=== PATIENT | female | born 1990 | race Hispanic/Latino ===

== ENCOUNTER 2016-12-03 22:10 | Emergency (ER) | payer OTHER ==
[2016-12-03] MEDS ORDERED: DICYCLOMINE 10 MG CAP As Ordered ONE (23:51)
[2016-12-03 23:55] LABS: BASO # 0.1 K/mm3 (0.0-0.2); BASO % 0.9 % (0.0-1.0); EOS # 0.5 K/mm3 (0.0-0.50); EOS % 7.8 % (0.0-3.0); LARGE UNSTAINED CELL # 0.1 K/mm3 (0.0-0.4); LYMPH # 2.9 K/mm3 (1.5-6.5); MEAN CORPUSCULAR HEMOGLOBIN 24.6 pg (27.0-33.0); MEAN CORPUSCULAR HGB CONC 31.6 g/dl (32.0-36.5); MEAN CORPUSCULAR VOLUME 77.8 fl (80.0-96.0); MONO # 0.4 K/mm3 (0.0-0.8); MONO % 5.7 % (0.0-5.0); NEUTROPHILS # 2.7 K/mm3 (1.8-7.7); NEUTROPHILS % 41.5 % (36.0-66.0); PLATELET COUNT, AUTOMATED 293 k/mm3 (150-450); RED CELL DISTRIBUTION WIDTH 14.1 % (11.5-14.5); WHITE BLOOD COUNT 6.6 K/mm3 (4.0-10.0)
[2016-12-04 00:22] LABS: ANION GAP 6 MEQ/L (8-16); BLOOD UREA NITROGEN 14 MG/DL (7-18); CALCIUM LEVEL 8.7 MG/DL (8.5-10.1); CARBON DIOXIDE LEVEL 29 MEQ/L (21-32); CHLORIDE LEVEL 106 MEQ/L (98-107); CREATININE FOR GFR 0.71 MG/DL (0.55-1.02); GLOMERULAR FILTRATION RATE > 60.0 (>60); GLUCOSE, FASTING 88 MG/DL (70-105); HCG, SERUM QUANTITATIVE < 1.0 MIU/ML; POTASSIUM SERUM 3.8 MEQ/L (3.5-5.1); SODIUM LEVEL 141 MEQ/L (136-145)
--- NOTE | 2016-12-04 00:43 | EDDOCDS ---
Physician Documentation [facility] Name: Ariella Rock Age: 26 yrs Sex: Female : 1990 Arrival Date: 12/03/2016 Time: 22:10 Bed I2 / M2 Private MD: Disposition: 12/04/16 00:36 Discharged to Home/Self Care. Impression: Lower abdominal pain, unspecified - CRAMPING, Constipation, unspecified. - Condition is Stable. - Discharge Instructions: Constipation, Adult, Abdominal Pain, Women. - Prescriptions for Bentyl 20 mg Oral Tablet - take 1 tablet by ORAL route every 6 hours As needed; 20 tablet. Colace 100 mg Oral Capsule - take 1 tablet by ORAL route every 12 hours As needed TAKE NEEDED UNTIL PRODUCTIVE BOWEL MOVEMENT, THEN STOP TAKING; 20 tablet. - Medication Reconciliation, Local Pharmacy Hours form. - Follow up: Emergency Department; When: As needed; Reason: Worsening of conditions. [facility]; When: Call to arrange an appointment; Reason: Recheck today's complaints, Continuance of care, To establish care. - Problem is new. - Symptoms have improved. Historical: - Allergies: Ibuprofen (Rash); - Home Meds: 1. Advair Diskus 250-50 mcg/dose Inhl dsdv 2 times per day (Last dose: 12/02/2016) - PMHx: Asthma; - PSHx: Cholecystectomy; Cesearean Section; - Social history: Smoking status: Patient states was never smoker of tobacco. Patient/guardian denies using alcohol, street drugs, No barriers to communication noted, The patient speaks fluent Setswana, Speaks appropriately for age. - Family history: Not pertinent. - : The pt / caregiver states he / she is not on anticoagulants. Home medication list is obtained from the patient. - Exposure Risk Screening:: None identified. GRAPE PICKER: 12/03 22:16 LMP 10/26/2016 ttb Vital Signs: 22:12 BP 128 / 70 RA Sitting (auto/lg); Pulse 84; Resp 16; Temp 98.4(O); Pulse Ox 99% on R/A; rs6 Weight 86.18 kg / 189.99 lbs (R); Height 5 ft. 2 in. (157.48 cm) (R); Pain 7/10; 12/04 00:37 BP 132 / 86; Pulse 72; Resp 16; Temp 98.8; Pulse Ox 99% on R/A; Pain 5/10; ld5 12/03 22:12 Body Mass Index 34.75 (86.18 kg, 157.48 cm) rs6 MDM: 12/03 22:27 UCG by Nursing ordered. dt4 22:29 Urinalysis Ordered. EDMS 22:29 Urine Culture Ordered. EDMS 23:33 Hcg, Serum Quantitative Ordered. EDMS 23:33 CBC with Diff Ordered. EDMS 23:33 Basic Metabolic Profile Ordered. EDMS 23:43 Dicyclomine 20 mg PO once ordered. dt4 12/04 00:08 Financial registration complete. [facility] 00:33 [facility] Payment Agreement was scanned into [employer] and attached to record. [facility] Point of Care Testing: Urine : 12/03 22:53 hCG Reading: Negative; cz Ranges: Administered Medications: 23:54 Drug: Dicyclomine 20 mg [dicyclomine 10 mg capsule (2 caps)] Route: PO; rw1 Signatures: Dispatcher [employer] EDEdilia De La Rosa,RN RN ld5 Lizzie Hill, MATHEW RN Jyoti Hayes, LÓPEZ PAHenrique dt4 Adeola Maravilla [facility] Bry Wren LPN rw1 The chart was reviewed and I authenticate all verbal orders and agree with the evaluation and treatment provided.Attachments: 12/04 00:33 [facility] Payment Agreement [facility] MTDD
--- NOTE | 2016-12-04 00:43 | EDDOCDS ---
Nurse's Notes [facility] Name: Ariella Rock Age: 26 yrs Sex: Female : 1990 Arrival Date: 12/03/2016 Time: 22:10 Bed I2 / M2 Private MD: Diagnosis: Lower abdominal pain, unspecified-CRAMPING;Constipation, unspecified Presentation: 12/03 22:14 Presenting complaint: Patient states: lower abd cramping that is worse at night x3 ttb days. -preg test at home. Some nausea and dizziness. Denies diarrhea. + constipation. No vag bleeding. Risk factors: the patient reports no vaginal bleeding. Adult Sepsis Screening: The patient does not have new or worsening altered mentation. Patient's respiratory rate is less than 22. Systolic blood pressure is greater than 100. Patient has a qSOFA score of 0- Negative Sepsis Screen. Suicide/Homicide risk assessment- the patient denies having any suicidal and/or homicidal ideations and does not present with any other emotional, behavioral or mental health complaints. Status: The patient is a dependent. Transition of care: patient was not received from another setting of care. 22:14 Acuity: FAVIOLA Level 3 ttb 22:14 Method Of Arrival: Walkin/Carried/Asstd ttb Triage Assessment: 22:16 General: Appears in no apparent distress, well nourished, well groomed, Behavior is ttb appropriate for age, cooperative, pleasant. Pain: Location: lower abd cramping Pain currently is 7 out of 10 on a pain scale. Pain radiates to right and left lower abd. HIV screening NA for this visit Offered previously. Neurological: Level of Consciousness is awake, alert. Cardiovascular: Chest pain is denied. Respiratory: No deficits noted. GI: Reports constipation, nausea. : Denies vaginal bleeding. Derm: Skin is normal. Injury Description: No known injury. 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 Advair Diskus 250-50 mcg/dose Inhl dsdv 2 times per day (Last dose: 12/02/2016) - PMHx: Asthma; - PSHx: Cholecystectomy; Cesearean Section; - Social history: Smoking status: Patient states was never smoker of tobacco. Patient/guardian denies using alcohol, street drugs, No barriers to communication noted, The patient speaks fluent Frisian, Speaks appropriately for age. - Family history: Not pertinent. - : The pt / caregiver states he / she is not on anticoagulants. Home medication list is obtained from the patient. - Exposure Risk Screening:: None identified. Screenin/04 00:37 Screening information is obtained from the patient. Fall risk: No risks identified. ld5 Assistance ADL's: requires no assistance with activities of daily living. Abuse/DV Screen: The patient / caregiver reports he/she is: not in a situation that causes fear, pain or injury. Nutritional screening: No deficits noted. Advance Directives: There is no active DNR order. home support is adequate. Assessment: 00:37 General: Appears in no apparent distress, Behavior is cooperative, pleasant. Pain: ld5 Location: right lower quadrant and left lower quadrant Pain currently is 5 out of 10 on a pain scale. Quality of pain is described as crampy. Neurological: Level of Consciousness is awake, alert. Respiratory: Airway is patent Respiratory effort is even, unlabored. GI: Abdomen is non- distended Bowel sounds present X 4 quads. Abd is tender to palpation in suprapubic area Denies nausea, vomiting. Derm: Skin is intact, Skin is dry. Vital Signs: 12/03 22:12 BP 128 / 70 RA Sitting (auto/lg); Pulse 84; Resp 16; Temp 98.4(O); Pulse Ox 99% on R/A; rs6 Weight 86.18 kg (R); Height 5 ft. 2 in. (157.48 cm) (R); Pain 7/10; 12/04 00:37 BP 132 / 86; Pulse 72; Resp 16; Temp 98.8; Pulse Ox 99% on R/A; Pain 5/10; ld5 12/03 22:12 Body Mass Index 34.75 (86.18 kg, 157.48 cm) [facility] Vitals: 12/03 22:12 Log In Time: December 03, 2016 at 22:12. [facility] ED Course: 22:11 Patient visited by Lakesha Laureano PCA. rs6 22:11 Patient moved to Waiting rs6 22:13 Patient visited by Lakesha Laureano PCA. rs6 22:13 Patient moved to Pre RCE rs6 22:15 Triage Initiated ttb 22:17 Patient visited by Lizzie Hill RN. ttb 22:53 Patient moved to Triage 1 cz 23:13 Jyoti Gamino PA-C is PHCP. dt4 23:13 Vincent Faulkner DO is Attending Physician. dt4 23:13 Patient visited by Jyoti Gamino PA-C. dt4 23:45 Patient moved to I2 / M2 cz 23:45 Basic Metabolic Profile Sent. cz 23:45 CBC with Diff Sent. cz 23:45 Hcg, Serum Quantitative Sent. cz 23:54 Patient visited by Bry Wren LPN. rw1 02/04 00:32 Patient name changed from Ariella\S\\S\Pranav\S\ to Ariella\S\ \S\Pranav. EDMS 00:33 [facility] [place] Agreement was scanned into [employer] and attached to record. [facility] 00:35 [facility] is Referral Physician. dt4 00:37 The patient / caregiver is instructed regarding the plan of care and ED course. Patient ld5 has correct armband on for positive identification. 00:37 No IV's were initiated during this patient's visit. No procedures done that require ld5 assistance. 00:40 Patient visited by Edilia Troy RN. ld5 00:42 Patient visited by Edilia Troy,MATHEW. ld5 Administered Medications: 0203 23:54 Drug: Dicyclomine 20 mg [dicyclomine 10 mg capsule (2 caps)] Route: PO; rw1 Point of Care Testing: Urine : 22:53 hCG Reading: Negative; cz Ranges: Order Results: Lab Order: Urinalysis; SPEC'M 12/03/16 22:42 Test: APPEARANCE, URINE; Value: CLEAR; Range: CLEAR; Status: F Test: COLOR, URINE; Value: YELLOW; Range: YELLOW; Status: F Test: PH,URINE; Value: 6.0; Range: 5.0-9.0; Units: UNITS; Status: F Test: SPECIFIC GRAVITY URINE AUTO; Value: 1.023; Range: 1.002-1.035; Status: F Test: PROTEIN, URINE AUTO; Value: NEGATIVE; Range: NEGATIVE; Units: mg/dL; Status: F Test: GLUCOSE, URINE (UA) AUTO; Value: NEGATIVE; Range: NEGATIVE; Units: mg/dL; Status: F Test: KETONE, URINE AUTO; Value: NEGATIVE; Range: NEGATIVE; Units: mg/dL; Status: F Test: UROBILINOGEN, URINE AUTO; Value: 0.2; Range: 0.0-2.0; Units: mg/dL; Status: F Test: BILIRUBIN, URINE AUTO; Value: NEGATIVE; Range: NEGATIVE; Status: F Test: NITRITE, URINE AUTO; Value: NEGATIVE; Range: NEGATIVE; Status: F Test: LEUKOCYTE ESTERASE, URINE AUTO; Value: NEGATIVE; Range: NEGATIVE; Status: F Test: BLOOD, URINE BLOOD; Value: NEGATIVE; Range: NEGATIVE; Status: F Test: WBC, URINE AUTO; Value: 0; Range: 0-3; Units: /HPF; Status: F Test: RBC, URINE AUTO; Value: 3; Range: 0-3; Units: /HPF; Status: F Test: BACTERIA, URINE AUTO; Value: NEGATIVE; Range: NEGATIVE; Status: F Test: SQUAMOUS EPITHELIAL CELL UR AU; Value: 1; Range: 0-6; Units: /HPF; Status: F Test: HYALINE CAST, URINE AUTO; Value: 0; Range: 0-1; Units: /LPF; Status: F Lab Order: Hcg, Serum Quantitative; SPEC'M 12/03/16 23:41 Test: HCG, SERUM QUANTITATIVE; Value: < 1.0; Units: MIU/ML; Status: F Test Note: ; GESTATIONAL AGE APPROXIMATE HCG RANGE (MIU/ML) 0.2-1 WEEK 5-50 1-2 WEEKS 50-500 2-3 WEEKS 100-5,000 3-4 WEEKS 500-10,000 4-5 WEEKS 1,000-50,000 5-6 WEEKS 10,000-100,000 6-8 WEEKS 15,000-200,000 2-3 MONTHS 10,000-100,000 NON FEMALES LESS THAN 3.0 Patient samples may contain human heterophilic antibodies that could react with immunoassays to give falsely elevated or depressed results. This assay has been designed to minimize interference from heterophilic antibodies. Elevated hCG levels have also been associated with trophoblastic disease and nontrophoblastic neoplasms. The possibility of having these diseases should be considered before a diagnosis of is made. This test is not intended for use as a surrogate marker for aiding in the diagnosis or monitoring the treatment of cancer patients. [employer] blogTV methodology. Lab Order: CBC with Diff; SPEC'M 12/03/16 23:41 Test: WHITE BLOOD COUNT; Value: 6.6; Range: 4.0-10.0; Units: K/mm3; Status: F Test: RED BLOOD COUNT; Value: 4.82; Range: 4.00-5.40; Units: M/mm3; Status: F Test: HEMOGLOBIN; Value: 11.9; Range: 12.0-16.0; Abnormal: Below low normal; Units: g/dl; Status: F Test: HEMATOCRIT; Value: 37.5; Range: 36.0-47.0; Units: %; Status: F Test: MEAN CORPUSCULAR VOLUME; Value: 77.8; Range: 80.0-96.0; Abnormal: Below low normal; Units: fl; Status: F Test: MEAN CORPUSCULAR HEMOGLOBIN; Value: 24.6; Range: 27.0-33.0; Abnormal: Below low normal; Units: pg; Status: F Test: MEAN CORPUSCULAR HGB CONC; Value: 31.6; Range: 32.0-36.5; Abnormal: Below low normal; Units: g/dl; Status: F Test: RED CELL DISTRIBUTION WIDTH; Value: 14.1; Range: 11.5-14.5; Units: %; Status: F Test: PLATELET COUNT, AUTOMATED; Value: 293; Range: 150-450; Units: k/mm3; Status: F Test: NEUTROPHILS %; Value: 41.5; Range: 36.0-66.0; Units: %; Status: F Test: LYMPH %; Value: 42.0; Range: 24.0-44.0; Units: %; Status: F Test: MONO %; Value: 5.7; Range: 0.0-5.0; Abnormal: Above high normal; Units: %; Status: F Test: EOS %; Value: 7.8; Range: 0.0-3.0; Abnormal: Above high normal; Units: %; Status: F Test: BASO %; Value: 0.9; Range: 0.0-1.0; Units: %; Status: F Test: LARGE UNSTAINED CELL %; Value: 2.0; Range: 0.0-4.0; Units: %; Status: F Test: NEUTROPHILS #; Value: 2.7; Range: 1.8-7.7; Units: K/mm3; Status: F Test: LYMPH #; Value: 2.9; Range: 1.5-6.5; Units: K/mm3; Status: F Test: MONO #; Value: 0.4; Range: 0.0-0.8; Units: K/mm3; Status: F Test: EOS #; Value: 0.5; Range: 0.0-0.50; Units: K/mm3; Status: F Test: BASO #; Value: 0.1; Range: 0.0-0.2; Units: K/mm3; Status: F Test: LARGE UNSTAINED CELL #; Value: 0.1; Range: 0.0-0.4; Units: K/mm3; Status: F Lab Order: Basic Metabolic Profile; [facility] 12/03/16 23:41 Test: GLUCOSE, FASTING; Value: 88; Range: 70-105; Units: MG/DL; Status: F Test: BLOOD UREA NITROGEN; Value: 14; Range: 7-18; Units: MG/DL; Status: F Test: CREATININE FOR GFR; Value: 0.71; Range: 0.55-1.02; Units: MG/DL; Status: F Test: GLOMERULAR FILTRATION RATE; Value: > 60.0; Range: >60; Status: F Test: SODIUM LEVEL; Value: 141; Range: 136-145; Units: MEQ/L; Status: F Test: POTASSIUM SERUM; Value: 3.8; Range: 3.5-5.1; Units: MEQ/L; Status: F Test: CHLORIDE LEVEL; Value: 106; Range: 98-107; Units: MEQ/L; Status: F Test: CARBON DIOXIDE LEVEL; Value: 29; Range: 21-32; Units: MEQ/L; Status: F Test: ANION GAP; Value: 6; Range: 8-16; Abnormal: Below low normal; Units: MEQ/L; Status: F Test: CALCIUM LEVEL; Value: 8.7; Range: 8.5-10.1; Units: MG/DL; Status: F Test Note: ; Units are mL/min/1.73 m2 Chronic Kidney Disease Staging per NKF: Stage I & II GFR >=60 Normal to Mildly Decreased Stage III GFR 30-59 Moderately Decreased Stage IV GFR 15-29 Severely Decreased Stage V GFR <15 Very Little GFR Left ESRD GFR <15 on FIELD APPRAISER Outcome: 12/04 00:36 Discharge ordered by Provider. dt4 00:37 Discharge Assessment: Patient awake, alert and oriented x 3. No cognitive and/or ld5 functional deficits noted. Patient verbalized understanding of disposition instructions. patient administered narcotics - no. The following High Risk Discharge criteria are identified: None. Discharged to home ambulatory. Condition: stable. Discharge instructions given to patient, Instructed on discharge instructions, follow up and referral plans. medication usage, Demonstrated understanding of instructions, medications, Pt was receptive of discharge instructions/ teaching. Prescriptions given X 2. No special radiology studies were completed. Property :Personal belongings accompany Pt. 00:42 Patient left the ED. ld5 Signatures: Dispatcher [employer] EDMS Shawn Segovia, RN RN cz Bry Wren LPN FLIGHT TEST SUPERVISOR rw1 Edilia Troy,RN RN ld5 Lizzie Hill, MATHEW RN Jyoti Hayes PA-C PA-C dt4 Adeola Maravilla Rebecca, YANY FACILITY MAINTENANCE WORKER rs6 MTDStephie
--- NOTE | 2016-12-06 01:43 | EDDOCDS ---
Physician Documentation [facility] Name: Ariella Rock Age: 26 yrs Sex: Female : 1990 Arrival Date: 12/03/2016 Time: 22:10 Bed I2 / M2 Private MD: Disposition: 12/04/16 00:36 Discharged to Home/Self Care. Impression: Lower abdominal pain, unspecified - CRAMPING, Constipation, unspecified. - Condition is Stable. - Discharge Instructions: Constipation, Adult, Abdominal Pain, Women. - Prescriptions for Bentyl 20 mg Oral Tablet - take 1 tablet by ORAL route every 6 hours As needed; 20 tablet. Colace 100 mg Oral Capsule - take 1 tablet by ORAL route every 12 hours As needed TAKE NEEDED UNTIL PRODUCTIVE BOWEL MOVEMENT, THEN STOP TAKING; 20 tablet. - Medication Reconciliation, Local Pharmacy Hours form. - Follow up: Emergency Department; When: As needed; Reason: Worsening of conditions. [facility]; When: Call to arrange an appointment; Reason: Recheck today's complaints, Continuance of care, To establish care. - Problem is new. - Symptoms have improved. Historical: - Allergies: Ibuprofen (Rash); - Home Meds: 1. Advair Diskus 250-50 mcg/dose Inhl dsdv 2 times per day (Last dose: 12/02/2016) - PMHx: Asthma; - PSHx: Cholecystectomy; Cesearean Section; - Social history: Smoking status: Patient states was never smoker of tobacco. Patient/guardian denies using alcohol, street drugs, No barriers to communication noted, The patient speaks fluent Thai, Speaks appropriately for age. - Family history: Not pertinent. - : The pt / caregiver states he / she is not on anticoagulants. Home medication list is obtained from the patient. - Exposure Risk Screening:: None identified. FURRIER APPRENTICE: 12/03 22:16 LMP 10/26/2016 ttb Vital Signs: 22:12 BP 128 / 70 RA Sitting (auto/lg); Pulse 84; Resp 16; Temp 98.4(O); Pulse Ox 99% on R/A; rs6 Weight 86.18 kg / 189.99 lbs (R); Height 5 ft. 2 in. (157.48 cm) (R); Pain 7/10; 12/04 00:37 BP 132 / 86; Pulse 72; Resp 16; Temp 98.8; Pulse Ox 99% on R/A; Pain 5/10; ld5 12/03 22:12 Body Mass Index 34.75 (86.18 kg, 157.48 cm) rs6 MDM: 12/03 22:27 UCG by Nursing ordered. dt4 22:29 Urinalysis Ordered. EDMS 22:29 Urine Culture Ordered. EDMS 23:33 Hcg, Serum Quantitative Ordered. EDMS 23:33 CBC with Diff Ordered. EDMS 23:33 Basic Metabolic Profile Ordered. EDMS 23:43 Dicyclomine 20 mg PO once ordered. dt4 12/04 00:08 Financial registration complete. [facility] 00:33 [facility] Payment Agreement was scanned into [employer] and attached to record. [facility] 18:13 T-Sheet-- Draft Copy was scanned into [employer] and attached to record. klr Point of Care Testing: Urine : 12/03 22:53 hCG Reading: Negative; cz Ranges: Administered Medications: 23:54 Drug: Dicyclomine 20 mg [dicyclomine 10 mg capsule (2 caps)] Route: PO; rw1 Signatures: Dispatcher [employer] Edilia Bullock RN RN ld5 Lizzie Hill RN RN Jyoti Hayes PA-C PA-C dt4 Adeola Maravilla Kathie klr Workman, Robert LPN rw1 The chart was reviewed and I authenticate all verbal orders and agree with the evaluation and treatment provided.Attachments: 12/04 00:33 [facility] Payment Agreement [facility] 18:13 T-Sheet-- Draft Copy klr Chart Complete MTDD
--- NOTE | 2016-12-06 01:43 | EDDOCDS ---
Nurse's Notes [facility] Name: Ariella Rock Age: 26 yrs Sex: Female : 1990 Arrival Date: 12/03/2016 Time: 22:10 Bed I2 / M2 Private MD: Diagnosis: Lower abdominal pain, unspecified-CRAMPING;Constipation, unspecified Presentation: 12/03 22:14 Presenting complaint: Patient states: lower abd cramping that is worse at night x3 ttb days. -preg test at home. Some nausea and dizziness. Denies diarrhea. + constipation. No vag bleeding. Risk factors: the patient reports no vaginal bleeding. Adult Sepsis Screening: The patient does not have new or worsening altered mentation. Patient's respiratory rate is less than 22. Systolic blood pressure is greater than 100. Patient has a qSOFA score of 0- Negative Sepsis Screen. Suicide/Homicide risk assessment- the patient denies having any suicidal and/or homicidal ideations and does not present with any other emotional, behavioral or mental health complaints. Status: The patient is a dependent. Transition of care: patient was not received from another setting of care. 22:14 Acuity: FAVIOLA Level 3 ttb 22:14 Method Of Arrival: Walkin/Carried/Asstd ttb Triage Assessment: 22:16 General: Appears in no apparent distress, well nourished, well groomed, Behavior is ttb appropriate for age, cooperative, pleasant. Pain: Location: lower abd cramping Pain currently is 7 out of 10 on a pain scale. Pain radiates to right and left lower abd. HIV screening NA for this visit Offered previously. Neurological: Level of Consciousness is awake, alert. Cardiovascular: Chest pain is denied. Respiratory: No deficits noted. GI: Reports constipation, nausea. : Denies vaginal bleeding. Derm: Skin is normal. Injury Description: No known injury. 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 Advair Diskus 250-50 mcg/dose Inhl dsdv 2 times per day (Last dose: 12/02/2016) - PMHx: Asthma; - PSHx: Cholecystectomy; Cesearean Section; - Social history: Smoking status: Patient states was never smoker of tobacco. Patient/guardian denies using alcohol, street drugs, No barriers to communication noted, The patient speaks fluent Portuguese, Speaks appropriately for age. - Family history: Not pertinent. - : The pt / caregiver states he / she is not on anticoagulants. Home medication list is obtained from the patient. - Exposure Risk Screening:: None identified. Screenin/04 00:37 Screening information is obtained from the patient. Fall risk: No risks identified. ld5 Assistance ADL's: requires no assistance with activities of daily living. Abuse/DV Screen: The patient / caregiver reports he/she is: not in a situation that causes fear, pain or injury. Nutritional screening: No deficits noted. Advance Directives: There is no active DNR order. home support is adequate. Assessment: 00:37 General: Appears in no apparent distress, Behavior is cooperative, pleasant. Pain: ld5 Location: right lower quadrant and left lower quadrant Pain currently is 5 out of 10 on a pain scale. Quality of pain is described as crampy. Neurological: Level of Consciousness is awake, alert. Respiratory: Airway is patent Respiratory effort is even, unlabored. GI: Abdomen is non- distended Bowel sounds present X 4 quads. Abd is tender to palpation in suprapubic area Denies nausea, vomiting. Derm: Skin is intact, Skin is dry. Vital Signs: 12/03 22:12 BP 128 / 70 RA Sitting (auto/lg); Pulse 84; Resp 16; Temp 98.4(O); Pulse Ox 99% on R/A; rs6 Weight 86.18 kg (R); Height 5 ft. 2 in. (157.48 cm) (R); Pain 7/10; 12/04 00:37 BP 132 / 86; Pulse 72; Resp 16; Temp 98.8; Pulse Ox 99% on R/A; Pain 5/10; ld5 12/03 22:12 Body Mass Index 34.75 (86.18 kg, 157.48 cm) rust Vitals: 12/03 22:12 Log In Time: December 03, 2016 at 22:12. rust ED Course: 22:11 Patient visited by Lakesha Laureano PCA. rs6 22:11 Patient moved to Waiting rs6 22:13 Patient visited by Lakesha Laureano PCA. rs6 22:13 Patient moved to Pre RCE rs6 22:15 Triage Initiated ttb 22:17 Patient visited by Lizzie Hill RN. ttb 22:53 Patient moved to Triage 1 cz 23:13 Jyoti Gamino PA-C is PHCP. dt4 23:13 Vincent Faulkner DO is Attending Physician. dt4 23:13 Patient visited by Jyoti Gamino PA-C. dt4 23:45 Patient moved to I2 / M2 cz 23:45 Basic Metabolic Profile Sent. cz 23:45 CBC with Diff Sent. cz 23:45 Hcg, Serum Quantitative Sent. cz 23:54 Patient visited by Bry Wren LPN. rw1 02/04 00:32 Patient name changed from Ariella\S\\S\Pranav\S\ to Ariella\S\ \S\Pranav. EDMS 00:33 [facility] Payment Agreement was scanned into [employer] and attached to record. [facility] 00:35 [facility] is Referral Physician. dt4 00:37 The patient / caregiver is instructed regarding the plan of care and ED course. Patient ld5 has correct armband on for positive identification. 00:37 No IV's were initiated during this patient's visit. No procedures done that require ld5 assistance. 00:40 Patient visited by Edilia Troy RN. ld5 00:42 Patient visited by Edilia Troy,MATHEW. ld5 18:13 T-Sheet-- Draft Copy was scanned into [employer] and attached to record. klr Administered Medications: 02 23:54 Drug: Dicyclomine 20 mg [dicyclomine 10 mg capsule (2 caps)] Route: PO; rw1 Point of Care Testing: Urine : 22:53 hCG Reading: Negative; cz Ranges: Order Results: Lab Order: Urinalysis; SPEC'M 12/03/16 22:42 Test: APPEARANCE, URINE; Value: CLEAR; Range: CLEAR; Status: F Test: COLOR, URINE; Value: YELLOW; Range: YELLOW; Status: F Test: PH,URINE; Value: 6.0; Range: 5.0-9.0; Units: UNITS; Status: F Test: SPECIFIC GRAVITY URINE AUTO; Value: 1.023; Range: 1.002-1.035; Status: F Test: PROTEIN, URINE AUTO; Value: NEGATIVE; Range: NEGATIVE; Units: mg/dL; Status: F Test: GLUCOSE, URINE (UA) AUTO; Value: NEGATIVE; Range: NEGATIVE; Units: mg/dL; Status: F Test: KETONE, URINE AUTO; Value: NEGATIVE; Range: NEGATIVE; Units: mg/dL; Status: F Test: UROBILINOGEN, URINE AUTO; Value: 0.2; Range: 0.0-2.0; Units: mg/dL; Status: F Test: BILIRUBIN, URINE AUTO; Value: NEGATIVE; Range: NEGATIVE; Status: F Test: NITRITE, URINE AUTO; Value: NEGATIVE; Range: NEGATIVE; Status: F Test: LEUKOCYTE ESTERASE, URINE AUTO; Value: NEGATIVE; Range: NEGATIVE; Status: F Test: BLOOD, URINE BLOOD; Value: NEGATIVE; Range: NEGATIVE; Status: F Test: WBC, URINE AUTO; Value: 0; Range: 0-3; Units: /HPF; Status: F Test: RBC, URINE AUTO; Value: 3; Range: 0-3; Units: /HPF; Status: F Test: BACTERIA, URINE AUTO; Value: NEGATIVE; Range: NEGATIVE; Status: F Test: SQUAMOUS EPITHELIAL CELL UR AU; Value: 1; Range: 0-6; Units: /HPF; Status: F Test: HYALINE CAST, URINE AUTO; Value: 0; Range: 0-1; Units: /LPF; Status: F Lab Order: Urine Culture; SPEC'M 12/03/16 22:42 Test: URINE CULTURE; Value: <EXTERNAL COMMENT eCWMed> FULL REPORT IN LAB NOTES (eCW and Medent).; Status: F Test: URINE CULTURE; Value: URINE CULTURE RESULT SPECIMEN APPEARS CONTAMINATED; Status: F Lab Order: Hcg, Serum Quantitative; SPEC'M 12/03/16 23:41 Test: HCG, SERUM QUANTITATIVE; Value: < 1.0; Units: MIU/ML; Status: F Test Note: ; GESTATIONAL AGE APPROXIMATE HCG RANGE (MIU/ML) 0.2-1 WEEK 5-50 1-2 WEEKS 50-500 2-3 WEEKS 100-5,000 3-4 WEEKS 500-10,000 4-5 WEEKS 1,000-50,000 5-6 WEEKS 10,000-100,000 6-8 WEEKS 15,000-200,000 2-3 MONTHS 10,000-100,000 NON FEMALES LESS THAN 3.0 Patient samples may contain human heterophilic antibodies that could react with immunoassays to give falsely elevated or depressed results. This assay has been designed to minimize interference from heterophilic antibodies. Elevated hCG levels have also been associated with trophoblastic disease and nontrophoblastic neoplasms. The possibility of having these diseases should be considered before a diagnosis of is made. This test is not intended for use as a surrogate marker for aiding in the diagnosis or monitoring the treatment of cancer patients. Siemens in3Dgallery methodology. Lab Order: CBC with Diff; SPEC'M 12/03/16 23:41 Test: WHITE BLOOD COUNT; Value: 6.6; Range: 4.0-10.0; Units: K/mm3; Status: F Test: RED BLOOD COUNT; Value: 4.82; Range: 4.00-5.40; Units: M/mm3; Status: F Test: HEMOGLOBIN; Value: 11.9; Range: 12.0-16.0; Abnormal: Below low normal; Units: g/dl; Status: F Test: HEMATOCRIT; Value: 37.5; Range: 36.0-47.0; Units: %; Status: F Test: MEAN CORPUSCULAR VOLUME; Value: 77.8; Range: 80.0-96.0; Abnormal: Below low normal; Units: fl; Status: F Test: MEAN CORPUSCULAR HEMOGLOBIN; Value: 24.6; Range: 27.0-33.0; Abnormal: Below low normal; Units: pg; Status: F Test: MEAN CORPUSCULAR HGB CONC; Value: 31.6; Range: 32.0-36.5; Abnormal: Below low normal; Units: g/dl; Status: F Test: RED CELL DISTRIBUTION WIDTH; Value: 14.1; Range: 11.5-14.5; Units: %; Status: F Test: PLATELET COUNT, AUTOMATED; Value: 293; Range: 150-450; Units: k/mm3; Status: F Test: NEUTROPHILS %; Value: 41.5; Range: 36.0-66.0; Units: %; Status: F Test: LYMPH %; Value: 42.0; Range: 24.0-44.0; Units: %; Status: F Test: MONO %; Value: 5.7; Range: 0.0-5.0; Abnormal: Above high normal; Units: %; Status: F Test: EOS %; Value: 7.8; Range: 0.0-3.0; Abnormal: Above high normal; Units: %; Status: F Test: BASO %; Value: 0.9; Range: 0.0-1.0; Units: %; Status: F Test: LARGE UNSTAINED CELL %; Value: 2.0; Range: 0.0-4.0; Units: %; Status: F Test: NEUTROPHILS #; Value: 2.7; Range: 1.8-7.7; Units: K/mm3; Status: F Test: LYMPH #; Value: 2.9; Range: 1.5-6.5; Units: K/mm3; Status: F Test: MONO #; Value: 0.4; Range: 0.0-0.8; Units: K/mm3; Status: F Test: EOS #; Value: 0.5; Range: 0.0-0.50; Units: K/mm3; Status: F Test: BASO #; Value: 0.1; Range: 0.0-0.2; Units: K/mm3; Status: F Test: LARGE UNSTAINED CELL #; Value: 0.1; Range: 0.0-0.4; Units: K/mm3; Status: F Lab Order: Basic Metabolic Profile; [facility] 12/03/16 23:41 Test: GLUCOSE, FASTING; Value: 88; Range: 70-105; Units: MG/DL; Status: F Test: BLOOD UREA NITROGEN; Value: 14; Range: 7-18; Units: MG/DL; Status: F Test: CREATININE FOR GFR; Value: 0.71; Range: 0.55-1.02; Units: MG/DL; Status: F Test: GLOMERULAR FILTRATION RATE; Value: > 60.0; Range: >60; Status: F Test: SODIUM LEVEL; Value: 141; Range: 136-145; Units: MEQ/L; Status: F Test: POTASSIUM SERUM; Value: 3.8; Range: 3.5-5.1; Units: MEQ/L; Status: F Test: CHLORIDE LEVEL; Value: 106; Range: 98-107; Units: MEQ/L; Status: F Test: CARBON DIOXIDE LEVEL; Value: 29; Range: 21-32; Units: MEQ/L; Status: F Test: ANION GAP; Value: 6; Range: 8-16; Abnormal: Below low normal; Units: MEQ/L; Status: F Test: CALCIUM LEVEL; Value: 8.7; Range: 8.5-10.1; Units: MG/DL; Status: F Test Note: ; Units are mL/min/1.73 m2 Chronic Kidney Disease Staging per NKF: Stage I & II GFR >=60 Normal to Mildly Decreased Stage III GFR 30-59 Moderately Decreased Stage IV GFR 15-29 Severely Decreased Stage V GFR <15 Very Little GFR Left ESRD GFR <15 on BATTERY ASSEMBLER Outcome: 12/04 00:36 Discharge ordered by Provider. dt4 00:37 Discharge Assessment: Patient awake, alert and oriented x 3. No cognitive and/or ld5 functional deficits noted. Patient verbalized understanding of disposition instructions. patient administered narcotics - no. The following High Risk Discharge criteria are identified: None. Discharged to home ambulatory. Condition: stable. Discharge instructions given to patient, Instructed on discharge instructions, follow up and referral plans. medication usage, Demonstrated understanding of instructions, medications, Pt was receptive of discharge instructions/ teaching. Prescriptions given X 2. No special radiology studies were completed. Property :Personal belongings accompany Pt. 00:42 Patient left the ED. ld5 Signatures: Dispatcher [employer] EDMS Shawn Segovia RN RN cz Bry Wren LPN LPN rw1 Edilia Troy RN RN ld5 Lizzie Hill RN RN ttb Tschudi, Diane, LÓPEZ PAHenrique dt4 Adeola Maravilla Rebecca, PCA AQUATIC SCIENTIST rs6 Kristel Steel Chart Complete MTDD
--- NOTE | 2016-12-06 01:43 | EDDOCDS ---
Physician Documentation [facility] Name: Ariella Rock Age: 26 yrs Sex: Female : 1990 Arrival Date: 12/03/2016 Time: 22:10 Bed I2 / M2 Private MD: Disposition: 12/04/16 00:36 Discharged to Home/Self Care. Impression: Lower abdominal pain, unspecified - CRAMPING, Constipation, unspecified. - Condition is Stable. - Discharge Instructions: Constipation, Adult, Abdominal Pain, Women. - Prescriptions for Bentyl 20 mg Oral Tablet - take 1 tablet by ORAL route every 6 hours As needed; 20 tablet. Colace 100 mg Oral Capsule - take 1 tablet by ORAL route every 12 hours As needed TAKE NEEDED UNTIL PRODUCTIVE BOWEL MOVEMENT, THEN STOP TAKING; 20 tablet. - Medication Reconciliation, Local Pharmacy Hours form. - Follow up: Emergency Department; When: As needed; Reason: Worsening of conditions. Follow up: [facility]; When: Call to arrange an appointment; Reason: Recheck today's complaints, Continuance of care, To establish care. - Problem is new. - Symptoms have improved. Historical: - Allergies: Ibuprofen (Rash); - Home Meds: 1. Advair Diskus 250-50 mcg/dose Inhl dsdv 2 times per day (Last dose: 12/02/2016) - PMHx: Asthma; - PSHx: Cholecystectomy; Cesearean Section; - Social history: Smoking status: Patient states was never smoker of tobacco. Patient/guardian denies using alcohol, street drugs, No barriers to communication noted, The patient speaks fluent Yoruba, Speaks appropriately for age. - Family history: Not pertinent. - : The pt / caregiver states he / she is not on anticoagulants. Home medication list is obtained from the patient. - Exposure Risk Screening:: None identified. 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 2 in. (157.48 cm) (R); Pain 7/10; 12/04 00:37 BP 132 / 86; Pulse 72; Resp 16; Temp 98.8; Pulse Ox 99% on R/A; Pain 5/10; ld5 12/03 22:12 Body Mass Index 34.75 (86.18 kg, 157.48 cm) rs6 MDM: 12/03 22:27 UCG by Nursing ordered. dt4 22:29 Urinalysis Ordered. EDMS 22:29 Urine Culture Ordered. EDMS 23:33 Hcg, Serum Quantitative Ordered. EDMS 23:33 CBC with Diff Ordered. EDMS 23:33 Basic Metabolic Profile Ordered. EDMS 23:43 Dicyclomine 20 mg PO once ordered. dt4 12/04 00:08 Financial registration complete. [facility] 00:33 [facility] Payment Agreement was scanned into [employer] and attached to record. [facility] 18:13 T-Sheet-- Draft Copy was scanned into [employer] and attached to record. klr Point of Care Testing: Urine : 12/03 22:53 hCG Reading: Negative; cz Ranges: Administered Medications: 23:54 Drug: Dicyclomine 20 mg [dicyclomine 10 mg capsule (2 caps)] Route: PO; rw1 Signatures: Dispatcher [employer] Edilia Bullock RN RN ld5 Lizzie Hill RN RN Jyoti Hayes PA-C PA-C dt4 Adeola Maravilla Kathie klr Workman, Robert LPN rw1 The chart was reviewed and I authenticate all verbal orders and agree with the evaluation and treatment provided.Attachments: 12/04 00:33 [facility] Payment Agreement [facility] 18:13 T-Sheet-- Draft Copy klr Chart Complete MTDD
== END 2016-12-04 00:42 | disposition home or self-care (01) ==
LOC: M ED 22:10
DX: K59.00 Constipation, unspecified (principal); J45.909 Unspecified asthma, uncomplicated; Z79.51 Long term (current) use of inhaled steroids; Z90.49 Acquired absence of other specified parts of digestive tract; Z88.8 Allergy status to other drugs, medicaments and biological substances

== ENCOUNTER 2017-02-15 18:04 | Emergency (ER) | payer OTHER ==
[~2017-02-15] VITALS: Ht 160 cm; Wt 81.6 kg
[2017-02-15] MEDS ORDERED: TYLE500T78 PO (18:20)
[2017-02-15] MEDS ORDERED: PERC5TAB6 PO (19:09)
[2017-02-15] MEDS ORDERED: PERCOCET 5MG/325MG TAB PO ONE (19:15)
[2017-02-15 19:59] VITALS: BP 144/81
== END 2017-02-15 20:03 | disposition home or self-care (01) ==
LOC: M ED 19:04
DX: K08.89 Other specified disorders of teeth and supporting structures (principal); F17.200 Nicotine dependence, unspecified, uncomplicated; Z88.6 Allergy status to analgesic agent

== ENCOUNTER 2017-02-19 00:51 | Emergency (ER) | payer OTHER ==
[~2017-02-19] VITALS: Ht 160 cm; Wt 86.2 kg
[~2017-02-19 00:51] MED LIST: PERC5TAB6 PO; TYLE500T78 PO
[2017-02-19 01:07] VITALS: BP 142/70
[2017-02-19] MEDS ORDERED: ADV250INH INH (01:09)
[2017-02-19] MEDS ORDERED: CETACAINE SPRAY 20GM (FLOOR STOCK) As Ordered ONE (01:21)
[2017-02-19] MEDS ORDERED: LIDOCAINE W/EPINEPHRINE 1% 20ML VIAL As Ordered ONE (01:21)
[2017-02-19] MEDS ORDERED: CETACAINE SPRAY 20GM (FLOOR STOCK) TOP ONE (01:30)
[2017-02-19] MEDS ORDERED: LIDOCAINE W/EPINEPHRINE 1% 20ML VIAL SC ONE (01:30)
[2017-02-19] MEDS ORDERED: TRAM50TA2 PO (01:47)
== END 2017-02-19 02:06 | disposition home or self-care (01) ==
LOC: M ED 01:39
DX: K08.9 Disorder of teeth and supporting structures, unspecified (principal); Z88.6 Allergy status to analgesic agent; Z79.899 Other long term (current) drug therapy; J45.909 Unspecified asthma, uncomplicated